=== PATIENT | male | born 1985 | race Caucasian/White ===

== ENCOUNTER 2020-10-27 08:09 | Emergency (ER) | payer OTHER ==
[~2020-10-27] VITALS: Ht 188 cm; Wt 85.4 kg
[2020-10-27 08:17] VITALS: BP 126/80
[2020-10-27] MEDS ORDERED: ACETAMINOPHEN 500 MG TABLET PO ONE (08:30)
[2020-10-27] MEDS ORDERED: IBUPROFEN 800 MG TABLET PO ONE (08:30)
[2020-10-27] MEDS ORDERED: IBUPROFEN 800 MG TABLET ONE (08:33)
[2020-10-27] MEDS ORDERED: ACETAMINOPHEN 500 MG TABLET ONE (08:34)
== END 2020-10-27 10:29 | disposition home or self-care (01) ==
LOC: ED 09:35
DX: J02.9 Acute pharyngitis, unspecified (principal); R09.81 Nasal congestion; R50.9 Fever, unspecified
CPT/HCPCS: 87081; 87880; 99283

== ENCOUNTER 2020-10-31 09:54 | Emergency (ER) | payer SELFPAY ==
[~2020-10-31] VITALS: Ht 188 cm; Wt 81.4 kg
--- NOTE | 2020-10-31 10:00 | NUR ---
CALLED FOR PT. PT NOT IN LOBBY
[2020-10-31 11:13] LABS: BASOPHILS % (AUTO) 1 % (0-1); EOSINOPHILS % (AUTO) 2 % (1-7); LYMPHOCYTES % (AUTO) 17 % (22-44); MEAN CORPUSCULAR HEMOGLOBIN 30.2 pg (27.5-34.5); MEAN CORPUSCULAR HGB CONC 33.4 g/dL (33.2-36.2); MEAN PLATELET VOLUME 7.4 fL (7.4-10.4); MONOCYTES % (AUTO) 7 % (2-9); NEUTROPHILS % (AUTO) 73 % (42-75); PLATELET COUNT 375 x10^3/uL (130-400); RED BLOOD COUNT 4.45 x10^6/uL (4.38-5.82); RED CELL DISTRIBUTION WIDTH 15.6 % (9.4-14.8)
[2020-10-31 11:23] LABS: MD NO
[2020-10-31 11:24] LABS: ALANINE AMINOTRANSFERASE 28 U/L (12-78); ALBUMIN 3.8 g/dL (3.4-5.0); ANION GAP 7 mmol/L (5-15); CALCIUM 8.6 mg/dL (8.5-10.1); CHLORIDE 107 mmol/L (98-107); CREATININE 0.84 mg/dL (0.7-1.3)
[2020-10-31 11:26] LABS: ALKALINE PHOSPHATASE 117 U/L (45-117); BILIRUBIN,TOTAL 0.4 mg/dL (0.2-1.0); TOTAL PROTEIN 7.6 g/dL (6.4-8.2)
[2020-10-31 11:40] VITALS: BP 123/72
== END 2020-10-31 12:26 | disposition home or self-care (01) ==
LOC: ED 10:22
DX: R10.84 Generalized abdominal pain (principal); R19.7 Diarrhea, unspecified; J02.9 Acute pharyngitis, unspecified; R05 Cough
CPT/HCPCS: 36415; 71045; 80053; 85025; 87081; 87880; 99284

== ENCOUNTER 2020-11-09 20:59 | Inpatient (IN) | payer SELFPAY ==
[~2020-11-09] VITALS: Ht 188 cm; Wt 75.1 kg
[2020-11-09] MEDS ORDERED: ACETAMINOPHEN 500 MG TABLET ONE (21:18)
--- NOTE | 2020-11-09 21:28 | NUR ---
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
[2020-11-09] MEDS ORDERED: ACETAMINOPHEN 500 MG TABLET PO ONE (21:30)
[2020-11-09] MEDS ORDERED: SODIUM CHLORIDE 0.9% 1,000ML IVBOLUS ONE (21:30)
--- NOTE | 2020-11-09 22:13 | NUR ---
pt in [facility], [place] with no signs or symptoms of acute distres noted respirations even and unlabored. lab in to draw cultures, in to assess. rn in room to start ivf at left ac. bed rails up bilaterally call light within reach
[2020-11-09] MEDS ORDERED: CEFTRIAXONE PMX 1GM/50ML 50 ML ONE (22:15)
[2020-11-09 22:21] LABS: BASOPHILS % (AUTO) 1 % (0-1); EOSINOPHILS % (AUTO) 1 % (1-7); LYMPHOCYTES % (AUTO) 19 % (22-44); MEAN CORPUSCULAR HEMOGLOBIN 30.3 pg (27.5-34.5); MEAN CORPUSCULAR HGB CONC 33.9 g/dL (33.2-36.2); MEAN PLATELET VOLUME 7.1 fL (7.4-10.4); MONOCYTES % (AUTO) 13 % (2-9); NEUTROPHILS % (AUTO) 66 % (42-75); PLATELET COUNT 399 x10^3/uL (130-400); RED BLOOD COUNT 4.16 x10^6/uL (4.38-5.82); RED CELL DISTRIBUTION WIDTH 14.9 % (9.4-14.8)
[2020-11-09] MEDS ORDERED: VANCOMYCIN PER PHARMACY MC PRN (22:30)
[2020-11-09] MEDS ORDERED: LIDOCAINE 1%, 10ML INFIL ONE (22:30)
[2020-11-09] MEDS ORDERED: VANCOMYCIN 2,000 MG in SODIUM CHLORIDE 0.9% 500 ML IV ONE (22:30)
[2020-11-09] MEDS ORDERED: CEFTRIAXONE PMX 1GM/50ML 50 ML IV ONE (22:30)
[2020-11-09 22:31] LABS: ALBUMIN 3.4 g/dL (3.4-5.0); ANION GAP 8 mmol/L (5-15); CALCIUM 8.6 mg/dL (8.5-10.1); CHLORIDE 105 mmol/L (98-107); CREATININE 0.86 mg/dL (0.7-1.3)
[2020-11-09] MEDS ORDERED: LIDOCAINE-MPF 1%, 5ML ONE (22:44)
[2020-11-09 22:49] LABS: MD SCAN
[2020-11-09] MEDS ORDERED: MORPHINE SULFATE 4 MG/ML, 1ML ONE (23:49)
[2020-11-09] MEDS ORDERED: ONDANSETRON 2MG/ML, 2ML ONE (23:49)
[2020-11-10] MEDS ORDERED: ONDANSETRON 2MG/ML, 2ML IVPush ONE
--- NOTE | 2020-11-10 00:19 | NUR ---
ASSUMING CARE OF PT FROM GOMEZ PINTO AT THIS TIME. REPORT OF PT CALLED TO GOMEZ SALAZAR. ALL QUESTIONS ANSWERED.
[2020-11-10] MEDS ORDERED: VANCOMYCIN PER PHARMACY MC PRN (00:30)
[2020-11-10] MEDS ORDERED: ACETAMINOPHEN 325 MG TABLET PO PRN (00:30)
[2020-11-10] MEDS ORDERED: ONDANSETRON 2MG/ML, 2ML IVPush PRN (00:30)
[2020-11-10] MEDS: NICOTINE 7 MG/24 HR PATCH.TD24 TD SCH (00:30)
[2020-11-10] MEDS ORDERED: DOCUSATE 100 MG CAPSULE PO PRN (00:30)
[2020-11-10 00:49] VITALS: BP 117/70
[2020-11-10] MEDS ORDERED: PHARMACOKINETIC MONITORING MC PRN (01:00)
[2020-11-10 01:37] VITALS: BP 102/68
[2020-11-10] MEDS: ENOXAPARIN 40 MG/0.4 ML SQ SCH (02:26)
[2020-11-10 02:51] LABS: AMPHETAMINE SCREEN, URINE Negative (Negative); BARBITURATE SCREEN, URINE Negative (Negative); BENZODIAZEPINE SCREEN, URINE Negative (Negative); CANNABINOID SCREEN, URINE Negative (Negative); COCAINE SCREEN, URINE Negative (Negative); METHADONE SCREEN, URINE Negative (Negative); OPIATE SCREEN, URINE Positive (Negative)
[2020-11-10] MEDS: LACTATED RINGERS 1,000 ML IV SCH ×4 (03:00→22:56)
[2020-11-10 05:29] LABS: BASOPHILS % (AUTO) 1 % (0-1); EOSINOPHILS % (AUTO) 1 % (1-7); LYMPHOCYTES % (AUTO) 23 % (22-44); MEAN CORPUSCULAR HEMOGLOBIN 30.8 pg (27.5-34.5); MEAN CORPUSCULAR HGB CONC 33.8 g/dL (33.2-36.2); MEAN PLATELET VOLUME 7.3 fL (7.4-10.4); MONOCYTES % (AUTO) 15 % (2-9); NEUTROPHILS % (AUTO) 61 % (42-75); PLATELET COUNT 406 x10^3/uL (130-400); RED BLOOD COUNT 3.93 x10^6/uL (4.38-5.82); RED CELL DISTRIBUTION WIDTH 15.2 % (9.4-14.8)
[2020-11-10 05:40] LABS: ANION GAP 4 mmol/L (5-15); CALCIUM 8.7 mg/dL (8.5-10.1); CHLORIDE 108 mmol/L (98-107); CREATININE 0.87 mg/dL (0.7-1.3)
[2020-11-10 06:04] LABS: MD SCAN
[2020-11-10] MEDS: HYDROcodone/APAP 5/325 TABLET PO PRN ×2 (06:34→17:15)
[2020-11-10 07:56] VITALS: BP 125/77
[2020-11-10] MEDS: VANCOMYCIN 1,600 MG in SODIUM CHLORIDE 0.9% 250 ML IV SCH ×2 (10:27→22:56)
[2020-11-10 13:53] VITALS: BP 117/74
[2020-11-10] MEDS ORDERED: MORPHINE SULFATE 4 MG/ML, 1ML IVPush PRN ×2 (15:30)
[2020-11-10 20:09] VITALS: BP 119/70
[2020-11-10] MEDS: CEFTRIAXONE PMX 1GM/50ML 50 ML IV SCH (22:06)
[2020-11-11] MEDS: NICOTINE 7 MG/24 HR PATCH.TD24 TD SCH ×2 (00:30→23:30)
[2020-11-11 02:18] VITALS: BP 122/75
[2020-11-11] MEDS: LACTATED RINGERS 1,000 ML IV SCH ×3 (05:40→23:30)
[2020-11-11 05:43] LABS: CHLORIDE 105 mmol/L (98-107)
[2020-11-11 05:51] LABS: BASOPHILS % (AUTO) 1 % (0-1); EOSINOPHILS % (AUTO) 1 % (1-7); HCT (SEDRATE) 36.1 % (39.2-51.8); LYMPHOCYTES % (AUTO) 21 % (22-44); MEAN CORPUSCULAR HGB CONC 33.9 g/dL (33.2-36.2); MEAN PLATELET VOLUME 7.8 fL (7.4-10.4); MONOCYTES % (AUTO) 11 % (2-9); NEUTROPHILS % (AUTO) 67 % (42-75); PLATELET COUNT 437 x10^3/uL (130-400); RED BLOOD COUNT 3.92 x10^6/uL (4.38-5.82); RED CELL DISTRIBUTION WIDTH 15.1 % (9.4-14.8)
[2020-11-11 05:53] LABS: ALANINE AMINOTRANSFERASE 28 U/L (12-78); ALKALINE PHOSPHATASE 91 U/L (45-117); ANION GAP 4 mmol/L (5-15); BILIRUBIN,TOTAL 0.4 mg/dL (0.2-1.0); CREATININE 0.74 mg/dL (0.7-1.3); TOTAL PROTEIN 7.2 g/dL (6.4-8.2)
[2020-11-11] MEDS: ENOXAPARIN 40 MG/0.4 ML SQ SCH (05:59)
[2020-11-11 06:09] LABS: MD NO
[2020-11-11 06:37] VITALS: BP 132/78
[2020-11-11] MEDS ORDERED: GADOTERATE 10 MMOL/20ML SYR ONE (10:03)
[2020-11-11] MEDS: VANCOMYCIN 1,600 MG in SODIUM CHLORIDE 0.9% 250 ML IV SCH ×2 (11:30→23:30)
[2020-11-11 14:00] VITALS: BP 114/70
[2020-11-11 20:03] VITALS: BP 125/81
[2020-11-11] MEDS: HYDROcodone/APAP 5/325 TABLET PO PRN (20:04)
[2020-11-11] MEDS: MELATONIN 5 MG TABLET PO PRN (20:04)
[2020-11-11] MEDS: CEFTRIAXONE PMX 1GM/50ML 50 ML IV SCH (22:10)
[2020-11-12 01:59] VITALS: BP 117/70
[2020-11-12 04:56] LABS: BASOPHILS % (AUTO) 1 % (0-1); EOSINOPHILS % (AUTO) 3 % (1-7); LYMPHOCYTES % (AUTO) 32 % (22-44); MEAN CORPUSCULAR HGB CONC 33.9 g/dL (33.2-36.2); MEAN PLATELET VOLUME 7.5 fL (7.4-10.4); MONOCYTES % (AUTO) 10 % (2-9); NEUTROPHILS % (AUTO) 55 % (42-75); PLATELET COUNT 458 x10^3/uL (130-400); RED CELL DISTRIBUTION WIDTH 14.9 % (9.4-14.8)
[2020-11-12 05:07] LABS: MD NO
[2020-11-12] MEDS: ENOXAPARIN 40 MG/0.4 ML SQ SCH (05:36)
[2020-11-12] MEDS: HYDROcodone/APAP 5/325 TABLET PO PRN ×3 (05:40→22:08)
[2020-11-12] MEDS ORDERED: GADOTERATE 7.5 MMOL/15 ML SYR ONE (07:51)
[2020-11-12 08:18] VITALS: BP 137/88
[2020-11-12] MEDS: VANCOMYCIN 1,600 MG in SODIUM CHLORIDE 0.9% 250 ML IV SCH (11:12)
[2020-11-12 14:05] VITALS: BP 148/80
[2020-11-12] MEDS: LACTATED RINGERS 1,000 ML IV SCH (14:18)
[2020-11-12] MEDS ORDERED: VANCOMYCIN 1,500 MG in SODIUM CHLORIDE 0.9% 250 ML IV SCH (20:00)
[2020-11-12 20:50] VITALS: BP 129/79
[2020-11-12] MEDS: CEFTRIAXONE PMX 1GM/50ML 50 ML IV SCH (22:07)
[2020-11-12] MEDS: MELATONIN 5 MG TABLET PO PRN (22:08)
[2020-11-13] MEDS: LACTATED RINGERS 1,000 ML IV SCH ×2 (00:13→10:12)
[2020-11-13 00:49] VITALS: BP 123/74
[2020-11-13] MEDS: ENOXAPARIN 40 MG/0.4 ML SQ SCH (05:51)
[2020-11-13 06:55] VITALS: BP 121/73
[2020-11-13 13:10] VITALS: BP 134/79
[2020-11-13] MEDS: HYDROcodone/APAP 5/325 TABLET PO PRN ×2 (13:36→20:10)
[2020-11-13 19:32] VITALS: BP 119/77
[2020-11-13] MEDS: MELATONIN 5 MG TABLET PO PRN (20:10)
[2020-11-13] MEDS: CEFTRIAXONE PMX 1GM/50ML 50 ML IV SCH (21:52)
[2020-11-13] MEDS: NICOTINE 7 MG/24 HR PATCH.TD24 TD SCH ×2 (22:19)
[2020-11-14 01:16] VITALS: BP 117/76
[2020-11-14] MEDS: LACTATED RINGERS 1,000 ML IV SCH ×3 (03:25→22:49)
[2020-11-14] MEDS: ENOXAPARIN 40 MG/0.4 ML SQ SCH (05:58)
[2020-11-14] MEDS: HYDROcodone/APAP 5/325 TABLET PO PRN (07:41)
[2020-11-14 07:51] VITALS: BP 109/68
[2020-11-14 12:34] VITALS: BP 119/68
[2020-11-14 14:10] VITALS: BP 137/88
[2020-11-14] MEDS: NICOTINE 7 MG/24 HR PATCH.TD24 TD SCH (16:51)
[2020-11-14 19:57] VITALS: BP 121/77
[2020-11-14] MEDS: MELATONIN 5 MG TABLET PO PRN (20:05)
[2020-11-14] MEDS: CEFTRIAXONE PMX 1GM/50ML 50 ML IV SCH (22:09)
[2020-11-15 02:16] VITALS: BP 101/60
[2020-11-15] MEDS: ENOXAPARIN 40 MG/0.4 ML SQ SCH (05:37)
[2020-11-15 06:16] LABS: BASOPHILS % (AUTO) 2 % (0-1); EOSINOPHILS % (AUTO) 3 % (1-7); LYMPHOCYTES % (AUTO) 32 % (22-44); MEAN CORPUSCULAR HEMOGLOBIN 30.2 pg (27.5-34.5); MEAN CORPUSCULAR HGB CONC 33.1 g/dL (33.2-36.2); MEAN PLATELET VOLUME 6.9 fL (7.4-10.4); MONOCYTES % (AUTO) 8 % (2-9); NEUTROPHILS % (AUTO) 56 % (42-75); PLATELET COUNT 591 x10^3/uL (130-400); RED BLOOD COUNT 4.24 x10^6/uL (4.38-5.82); RED CELL DISTRIBUTION WIDTH 14.3 % (9.4-14.8)
[2020-11-15 06:17] LABS: MD NO
[2020-11-15 06:18] LABS: HCT (SEDRATE) 37.3 % (39.2-51.8)
[2020-11-15 06:27] LABS: ANION GAP 5 mmol/L (5-15); CALCIUM 9.1 mg/dL (8.5-10.1); CHLORIDE 106 mmol/L (98-107); CREATININE 0.92 mg/dL (0.7-1.3)
[2020-11-15 07:36] VITALS: BP 117/72
[2020-11-15] MEDS: LACTATED RINGERS 1,000 ML IV SCH ×2 (07:52→20:10)
[2020-11-15] MEDS: HYDROcodone/APAP 5/325 TABLET PO PRN (12:55)
[2020-11-15 14:26] VITALS: BP 137/87
[2020-11-15] MEDS: NICOTINE 7 MG/24 HR PATCH.TD24 TD SCH (17:00)
[2020-11-15 18:48] VITALS: BP 117/74
[2020-11-15] MEDS: MELATONIN 5 MG TABLET PO PRN (22:05)
[2020-11-15] MEDS: CEFTRIAXONE PMX 1GM/50ML 50 ML IV SCH (22:05)
[2020-11-16 01:04] VITALS: BP 110/65
[2020-11-16] MEDS: HYDROcodone/APAP 5/325 TABLET PO PRN ×3 (02:18→20:22)
[2020-11-16] MEDS: ENOXAPARIN 40 MG/0.4 ML SQ SCH (05:40)
[2020-11-16 06:35] VITALS: BP 124/76
[2020-11-16] MEDS: LACTATED RINGERS 1,000 ML IV SCH (07:07)
[2020-11-16 13:52] VITALS: BP 135/87
[2020-11-16] MEDS: NICOTINE 7 MG/24 HR PATCH.TD24 TD SCH (17:00)
[2020-11-16 19:24] VITALS: BP 125/75
[2020-11-16] MEDS: CEFTRIAXONE PMX 1GM/50ML 50 ML IV SCH (22:10)
[2020-11-16] MEDS: MELATONIN 5 MG TABLET PO PRN (22:10)
[2020-11-17 02:14] VITALS: BP 100/62
[2020-11-17] MEDS: ENOXAPARIN 40 MG/0.4 ML SQ SCH (06:00)
[2020-11-17 07:01] VITALS: BP 144/89
[2020-11-17] MEDS ORDERED: AMOX1TAB64 PO (10:12)
== END 2020-11-17 11:38 | disposition home or self-care (01) | DRG 872 ==
LOC: ED 21:59 → EDIP 23:31 → 3N 11-10 00:44 → DCLOUNGE 11-17 11:04
PROVIDERS: ADMIT Family Medicine; ATTEND Internal Medicine
DX: A41.9 Sepsis, unspecified organism (principal); L02.416 Cutaneous abscess of left lower limb; L03.116 Cellulitis of left lower limb; D64.9 Anemia, unspecified; F12.90 Cannabis use, unspecified, uncomplicated; Z56.0 Unemployment, unspecified; Z59.0 Homelessness; Z83.3 Family history of diabetes mellitus; Z72.0 Tobacco use; Z71.6 Tobacco abuse counseling
CPT/HCPCS: 36415; 96374; 96375; 99285; J3490; 80048; 80053; 80202; 80307; 82040; 83605; 85025; 85651; 86140; 87040; 87070; 87147; 87205; G0378; J0696; J1650; J2405; J3370; A9575; J2270; J7030; J7040; J7050; J7120

== ENCOUNTER 2021-01-29 13:08 | Emergency (ER) | payer MEDICAID ==
[~2021-01-29] VITALS: Ht 188 cm; Wt 81.2 kg
[~2021-01-29 13:08] MED LIST: AMOX1TAB64 PO
[2021-01-29 13:14] VITALS: BP 129/84
--- NOTE | 2021-01-29 13:31 | NUR ---
PT HEARING VOICES TO KILL HIMSELF. NO PLAN OR METHOD TO KILL HIMSELF. STATES HE HEARS BIRDS. RECENT METH USE YESTERDY.
[2021-01-29 14:00] LABS: BASOPHILS % (AUTO) 1 % (0-1); EOSINOPHILS % (AUTO) 2 % (1-7); LYMPHOCYTES % (AUTO) 30 % (22-44); MEAN CORPUSCULAR HEMOGLOBIN 29.4 pg (27.5-34.5); MEAN CORPUSCULAR HGB CONC 32.9 g/dL (33.2-36.2); MEAN PLATELET VOLUME 7.9 fL (7.4-10.4); MONOCYTES % (AUTO) 8 % (2-9); NEUTROPHILS % (AUTO) 59 % (42-75); PLATELET COUNT 356 x10^3/uL (130-400); RED BLOOD COUNT 5.46 x10^6/uL (4.38-5.82); RED CELL DISTRIBUTION WIDTH 13.9 % (9.4-14.8)
[2021-01-29 14:01] LABS: ALANINE AMINOTRANSFERASE 27 U/L (12-78); ALBUMIN 4.1 g/dL (3.4-5.0); ANION GAP 8 mmol/L (5-15); CALCIUM 9.1 mg/dL (8.5-10.1); CHLORIDE 109 mmol/L (98-107)
[2021-01-29 14:03] LABS: MD NO; SALICYLATE LEVEL < 1.7 mg/dL (2.8-20.0)
[2021-01-29 14:09] LABS: ALKALINE PHOSPHATASE 105 U/L (45-117); BILIRUBIN,TOTAL 0.3 mg/dL (0.2-1.0); TOTAL PROTEIN 7.8 g/dL (6.4-8.2)
--- NOTE | 2021-01-29 15:10 | NUR ---
SEEN BY SERGEY DUCKWORTH PT NOT TO BE DC, UNSAFE DC PLAN. MEAL TRAY ODERED. BELONGING IN LOCKER. SECURE ROOM
[2021-01-29] MEDS ORDERED: OLANZAPINE 5 MG TABLET PO SCH (15:30)
[2021-01-29] MEDS ORDERED: OLANZAPINE 5 MG TABLET ONE (15:33)
--- NOTE | 2021-01-29 15:58 | NUR ---
PT GIVEN MEAL TRAY
--- NOTE | 2021-01-29 16:30 | NUR ---
PT WATCHING TV, CALL [facility] IN [place]
--- NOTE | 2021-01-29 17:30 | NUR ---
PT SLEEPING, SITTER PRESENT
[2021-01-29 17:39] LABS: AMPHETAMINE SCREEN, URINE Positive (Negative); BARBITURATE SCREEN, URINE Negative (Negative); BENZODIAZEPINE SCREEN, URINE Negative (Negative); CANNABINOID SCREEN, URINE Negative (Negative); COCAINE SCREEN, URINE Negative (Negative); METHADONE SCREEN, URINE Negative (Negative); OPIATE SCREEN, URINE Negative (Negative)
--- NOTE | 2021-01-29 17:48 | NUR ---
Reviewed pt for possible BHU admission. Pt would need Full COVID PCR test (not a rapid test) before pt can be considered, due to s/s noted in ED triage documentation. Updated MIGUEL Lovelace.
--- NOTE | 2021-01-29 18:46 | NUR ---
PT GIVEN MEAL TRAY. REPORT TO ELZBIETA
--- NOTE | 2021-01-29 19:10 | NUR ---
GAVE REPORT TO EDUARDO AGUIRRE RN.
--- NOTE | 2021-01-29 19:26 | NUR ---
TP: [facility] ACCEPTING. ANGELINE FROM [facility] CALLED TO ACCEPT. DR HARTMANN IS ACCEPTING MD. PT CAN GO AT 2200
--- NOTE | 2021-01-29 22:16 | NUR ---
report from bo assumed care of pt
--- NOTE | 2021-01-29 22:16 | NUR ---
amirah thomas yo transport pt to [place] at this time pt in [place]
== END 2021-01-29 22:19 ==
LOC: ED 14:26
DX: F23 Brief psychotic disorder (principal); R45.851 Suicidal ideations; R94.31 Abnormal electrocardiogram [ECG] [EKG]
CPT/HCPCS: 36415; 80053; 80299; 80307; 80320; 80329; 84443; 85025; 93005; 99285; G0480

== ENCOUNTER 2021-02-02 16:39 | Emergency (ER) | payer MEDICAID ==
[~2021-02-02] VITALS: Ht 180.3 cm; Wt 80.0 kg
[2021-02-02 16:51] VITALS: BP 121/80
== END 2021-02-02 18:34 | disposition home or self-care (01) ==
LOC: ED 18:10
DX: F10.220 Alcohol dependence with intoxication, uncomplicated (principal); Y90.0 Blood alcohol level of less than 20 mg/100 ml
CPT/HCPCS: 99283